=== PATIENT | male | born 1970 | race Two or more races ===

== ENCOUNTER 2017-11-18 08:32 | Emergency (ER) | payer OTHER ==
[2017-11-18] MEDS: HYDROCODONE/APAP (10/325) TAB PO (08:59)
[2017-11-18] MEDS: IBUPROFEN 600 MG TAB PO (08:59)
== END 2017-11-18 11:05 | disposition home or self-care (01) ==
LOC: FTE 08:32
DX: M54.5 Low back pain (principal); F17.210 Nicotine dependence, cigarettes, uncomplicated; E11.9 Type 2 diabetes mellitus without complications
CPT/HCPCS: 72100; 99283-25